=== PATIENT | female | born 1960 | race Caucasian/White ===

== ENCOUNTER 2019-04-19 13:47 | Emergency (ER) | payer MEDICARE ==
[~2019-04-19] VITALS: Ht 162.6 cm; Wt 69.4 kg
[2019-04-19] MEDS ORDERED: ATOR10 PO (14:18)
[2019-04-19] MEDS ORDERED: NAPR550 PO (14:55)
[2019-04-19] MEDS ORDERED: Robaxin500 MG PO (14:55)
[2019-04-19] MEDS ORDERED: HYDR1TAB94 PO (14:55)
== END 2019-04-19 15:09 | disposition home or self-care (01) ==
LOC: ER 13:47
DX: M54.5 Low back pain (principal); W10.9XXA Fall (on) (from) unspecified stairs and steps, initial encounter
CPT/HCPCS: 96372; 99283-25; J1885

== ENCOUNTER 2019-06-06 09:29 | Emergency (ER) | payer MEDICARE, BC ==
[~2019-06-06] VITALS: Ht 162.6 cm; Wt 68.0 kg
[~2019-06-06 09:29] MED LIST: ATOR10 PO; HYDR1TAB94 PO; NAPR550 PO; Robaxin500 MG PO
[2019-06-06 11:24] LABS: BASOPHILS ABSOLUTE AUTO 0.03 K/mm3 (0.00-0.23); BASOPHILS PERCENT AUTO 1 % (0-2); EOSINOPHILS ABSOLUTE AUTO 0.16 K/mm3 (0.00-0.68); EOSINOPHILS PERCENT AUTO 3 % (0-6); Hematocrit 36.4 % (33.0-51.0); Hemoglobin 12.2 g/dL (11.5-16.0); IMMATURE GRAN ABSOLUTE AUTO 0.01 K/mm3 (0.00-0.10); IMMATURE GRAN PERCENT AUTO 0 % (0-1); LYMPHOCYTES ABSOLUTE AUTO 1.68 K/mm3 (0.84-5.20); LYMPHOCYTES PERCENT AUTO 27 % (21-46); MONOCYTES ABSOLUTE AUTO 0.74 K/mm3 (0.16-1.47); MONOCYTES PERCENT AUTO 12 % (4-13); Mean Corpuscular HGB 33.7 pg (26.0-34.0); Mean Corpuscular HGB Conc 33.5 g/dL (31.5-36.5); Mean Corpuscular Volume 101 fL (80-100); Mean Platelet Volume 10.6 fL (9.1-12.4); NEUTROPHILS ABSOLUTE AUTO 3.53 K/mm3 (1.96-9.15); NEUTROPHILS PERCENT AUTO 57 % (41-73); Platelet Count 178 K/mm3 (150-400); RDW Coefficient Variation 12.3 % (11.7-14.2); RDW Standard Deviation 45.8 fL (35.1-46.3); Red Blood Cell Count 3.62 M/mm3 (3.80-5.20); White Blood Cell Count 6.15 K/mm3 (4.00-11.30)
[2019-06-06 11:51] LABS: Alanine Aminotransfer (ALT/SGP 23 U/L (12-78); Albumin, Blood 3.6 g/dL (3.4-5.0); Alk Phos 81 U/L (50-136); Anion Gap 7 mmol/L (6-16); Aspartate Aminotrans (AST/SGOT 19 U/L (12-37); Bilirubin, Total 0.4 mg/dL (0.1-1.0); Blood Urea Nitrogen 8 mg/dL (8-24); Bun/Creatinine Ratio 16.1 (12.0-20.0); CO2, Blood 27 mmol/L (21-32); Calcium, Blood 8.6 mg/dL (8.5-10.1); Chloride, Blood 108 mmol/L (98-108); Globulin, Blood 3.7 g/dL (2.2-4.0); Glomerular Filtration Rate >60 (60-); Glucose, Blood 103 mg/dL (70-99); Potassium, Blood 3.4 mmol/L (3.5-5.5); Sodium, Blood 142 mmol/L (136-145); Total Protein, Blood 7.3 g/dL (6.4-8.2); Troponin I <0.015 ng/mL (0.000-0.040)
[2019-06-06] MEDS ORDERED: HIGH POTENCY TOP (12:03)
[2019-06-06] MEDS ORDERED: CEPH500 PO (12:03)
== END 2019-06-06 12:15 | disposition home or self-care (01) ==
LOC: ER 09:29
PROVIDERS: Physician Assistant
DX: L03.116 Cellulitis of left lower limb (principal); M25.522 Pain in left elbow; M25.512 Pain in left shoulder; Z79.899 Other long term (current) drug therapy
CPT/HCPCS: 36415; 71046; 80053; 84484; 85025; 93005; 93010; 99284-25

== ENCOUNTER 2024-03-24 11:27 | Emergency (ER) | payer MEDICARE ==
[~2024-03-24] VITALS: Ht 162.6 cm; Wt 65.8 kg
[~2024-03-24 11:27] MED LIST changes: +CEPH500 PO; +HIGH POTENCY TOP
[2024-03-24 12:22] LABS: BASOPHILS ABSOLUTE AUTO 0.04 K/mm3 (0.00-0.23); BASOPHILS PERCENT AUTO 1 % (0-2); EOSINOPHILS ABSOLUTE AUTO 0.07 K/mm3 (0.00-0.68); EOSINOPHILS PERCENT AUTO 1 % (0-6); Hematocrit 33.3 % (33.0-51.0); Hemoglobin 11.3 g/dL (11.5-16.0); IMMATURE GRAN ABSOLUTE AUTO 0.02 K/mm3 (0.00-0.10); IMMATURE GRAN PERCENT AUTO 0 % (0-1); LYMPHOCYTES PERCENT AUTO 21 % (21-46); MONOCYTES ABSOLUTE AUTO 0.65 K/mm3 (0.16-1.47); MONOCYTES PERCENT AUTO 12 % (4-13); Mean Corpuscular HGB 35.5 pg (26.0-34.0); Mean Corpuscular HGB Conc 33.9 g/dL (31.5-36.5); Mean Corpuscular Volume 105 fL (80-100); Mean Platelet Volume 11.3 fL (9.1-12.4); NEUTROPHILS ABSOLUTE AUTO 3.44 K/mm3 (1.96-9.15); NEUTROPHILS PERCENT AUTO 65 % (41-73); Platelet Count 241 K/mm3 (150-400); RDW Coefficient Variation 13.4 % (11.7-14.2); RDW Standard Deviation 51.3 fL (35.1-46.3); Red Blood Cell Count 3.18 M/mm3 (3.80-5.20); White Blood Cell Count 5.32 K/mm3 (4.00-11.30)
[2024-03-24 12:30] VITALS: BP 157/105
[2024-03-24 12:33] LABS: Albumin, Blood 3.5 g/dL (3.4-5.0); Albumin/Globulin Ratio 1.1 (0.8-1.8); Bilirubin, Total 0.6 mg/dL (0.1-1.0); Bun/Creatinine Ratio 19.4 (12.0-20.0); Creatinine, Blood 0.41 mg/dL (0.40-1.00); Globulin, Blood 3.1 g/dL (2.2-4.0); Potassium, Blood 3.6 mmol/L (3.5-5.5); Total Protein, Blood 6.6 g/dL (6.4-8.2)
[2024-03-24] MEDS ORDERED: LORazepam 2 MG/ML 1ML Injection IV ONE (13:55)
[2024-03-24] MEDS ORDERED: Ativan1 MG PO (14:13)
== END 2024-03-24 14:30 | disposition home or self-care (01) ==
LOC: ER 11:27
PROVIDERS: Nurse Practitioner
DX: F41.9 Anxiety disorder, unspecified (principal); Z73.3 Stress, not elsewhere classified; E78.5 Hyperlipidemia, unspecified; Z87.891 Personal history of nicotine dependence; Z79.899 Other long term (current) drug therapy
CPT/HCPCS: 71046; 80053; 84484; 85025; 93005; 93010; 96374; 99285-25; J2060

== ENCOUNTER 2024-09-19 11:10 | Emergency (ER) | payer MEDICARE ==
[~2024-09-19] VITALS: Ht 162.6 cm; Wt 64.9 kg
[~2024-09-19 11:10] MED LIST changes: +Ativan1 MG PO
[2024-09-19 11:28] VITALS: BP 177/90
[2024-09-19] MEDS ORDERED: CODITUSSIN AC473 M1 PO (12:29)
[2024-09-19] MEDS ORDERED: CODEINE-GUAIFE120 M1 PO (14:49)
== END 2024-09-19 12:34 | disposition home or self-care (01) ==
LOC: ER 11:10
DX: B34.9 Viral infection, unspecified (principal); Z87.891 Personal history of nicotine dependence; E78.5 Hyperlipidemia, unspecified; Z79.899 Other long term (current) drug therapy
CPT/HCPCS: 71046; 99283-25